=== PATIENT | female | born 2000 | race Caucasian/White ===

== ENCOUNTER 2024-02-27 14:24 | Emergency (ER) | payer OTHER ==
[~2024-02-27] VITALS: Ht 162.6 cm; Wt 90.7 kg
[2024-02-27 14:42] VITALS: BP_SYST 126; PULSE 89; RESP 18; TEMP 98; O2SAT 99
[2024-02-27] MEDS: KETOROLAC TROMETHAMINE 30 MG VIAL IM ONE (15:09)
[2024-02-27] MEDS ORDERED: DICL50TA9 PO (15:35)
[2024-02-27] MEDS ORDERED: DICL20GE TP (15:35)
== END 2024-02-27 15:50 | disposition home or self-care (01) ==
LOC: SED 14:24
DX: S16.1XXA Strain of muscle, fascia and tendon at neck level, initial encounter (principal); S70.01XA Contusion of right hip, initial encounter; Z91.012 Allergy to eggs; Z91.018 Allergy to other foods; V89.2XXA Person injured in unspecified motor-vehicle accident, traffic, initial encounter; Y93.89 Activity, other specified; Y92.89 Other specified places as the place of occurrence of the external cause; Y99.8 Other external cause status
CPT/HCPCS: 99284; 72040; 72170; 73502; 81025; 96372; J1885